=== PATIENT | male | born 2000 | race Caucasian/White ===

== ENCOUNTER 2024-06-09 21:37 | Emergency (ER) | payer OTHER ==
[2024-06-10] MEDS ORDERED: Ketorolac Tromethamine 30 MG (1 mL) VIAL ONE (00:05)
== END 2024-06-10 01:11 | disposition home or self-care (01) ==
LOC: ERS 21:37
DX: S83.005A Unspecified dislocation of left patella, initial encounter (principal); Z55.6 Problems related to health literacy; W01.0XXA Fall on same level from slipping, tripping and stumbling without subsequent striking against object, initial encounter
CPT/HCPCS: 96372; 99283; J1885